=== PATIENT | male | born 1990 | race Caucasian/White ===

== ENCOUNTER 2019-02-24 07:03 | Emergency (ER) | payer BC, MEDICAID ==
--- NOTE | 2019-02-24 07:46 | Emergency Department Record ---
History of Present Illness - General Chief Complaint: Ankle/Foot Injury Stated Complaint: INJURED ANKLE Time Seen by Provider: 02/24/19 07:11 Source: Patient Mode of Arrival: Wheelchair Limitations: No limitations - History of Present Illness Initial Comments: pt twisted his l ankle yesterday then retwisted it again today. he also twisted his r knee MD Complaint: Knee injury, Ankle injury Onset/Timin -: Hour(s) Injury: Knee: Right, Ankle: Left Type of Injury: Inversion Place: Home Severity: Moderate Severity scale (1-10): 5 Improves With: Immobilization Worsens With: Weight bearing Context: Walking Associated Symptoms: Able to partially bear weight - Related Data Home Medications Medication Instructions Recorded Confirmed Last Taken No Home Med [NO HOME MEDS] 02/24/19 02/24/19 Unknown Allergies Allergy/AdvReac Type Severity Reaction Status Date / Time No Known Drug Allergies Allergy Verified 02/24/19 07:23 Travel Screening - Travel/Exposure Within Last 30 Days Have you traveled within the last 30 days?: No - Travel/Exposure Within Last Year Have you traveled outside the [place] in the last year?: No - Additonal Travel Details Have you been exposed to anyone with a communicable illness?: No - Travel Symptoms Symptom Screening: None Review of Systems Reviewed: No additional complaints except as noted below Constitutional: Reports: As per HPI. Denies: Chills, Fever, Malaise, Night sweats, Weakness, Weight change Eyes: Reports: As per HPI. Denies: Eye discharge, Eye pain, Photophobia, Vision change ENT: Reports: As per HPI. Denies: Congestion, Dental pain, Ear pain, Epistaxis, Hearing loss, Throat pain Respiratory: Reports: As per HPI. Denies: Cough, Dyspnea, Hemoptysis, Stridor, Wheezes Cardiovascular: Reports: As per HPI. Denies: Arrhythmia, Chest pain, Dyspnea on exertion, Edema, Murmurs, Orthopnea, Palpitations, Paroxysmal nocturnal dyspnea, Rheumatic Fever, Syncope Endocrine: Reports: As per HPI. Denies: Fatigue, Heat or cold intolerance, Polydipsia, Polyuria Gastrointestinal: Reports: As per HPI. Denies: Abdominal pain, Constipation, Diarrhea, Hematemesis, Hematochezia, Melena, Nausea, Vomiting Genitourinary: Reports: As per HPI. Denies: Dysuria, Frequency, Hematuria, Incontinence, Retention, Testicular pain, Testicular mass, Urgency Musculoskeletal: Reports: As per HPI. Denies: Arthralgia, Back pain, Gout, Joint swelling, Myalgia, Neck pain Skin: Reports: As per HPI. Denies: Bruising, Change in color, Change in hair/nails, Lesions, Pruritus, Rash Neurological: Reports: As per HPI. Denies: Abnormal gait, Confusion, Headache, Numbness, Paresthesias, Seizure, Tingling, Tremors, Vertigo, Weakness Psychiatric: Reports: As per HPI. Denies: Anxiety, Auditory hallucinations, Depression, Homicidal thoughts, Suicidal thoughts, Visual hallucinations Hematological/Lymphatic: Reports: As per HPI. Denies: Anemia, Blood Clots, Easy bleeding, Easy bruising, Swollen glands Past Medical History - SOCIAL HISTORY Smoking Status: Current every day smoker Alcohol Use: Occasional Drug Use: Occasional Drug Use Detail:: Marijuana - RESPIRATORY Hx Respiratory Disorders: No - CARDIOVASCULAR Hx Cardio Disorders: No - GI Hx GI Disorders: No - Hx Genitourinary Disorders: No - MUSCULOSKELETAL Hx Musculoskeletal Disorders: No - PSYCH Hx Psych Problems: No - HEMATOLOGY/ONCOLOGY Hx Hematology/Oncology Disorders: No Family Medical History Any Significant Family History?: No Physical Exam - General General Appearance: Alert, Oriented x3, Cooperative, Mild distress - Head Head exam: Normal inspection - Eye Eye exam: Normal appearance, PERRL, EOMI Pupils: Normal accommodation - ENT ENT exam: Normal exam, Mucous membranes moist, Normal external ear exam, Normal orophraynx Ear exam: Normal external inspection. negative: External canal tenderness Nasal Exam: Normal inspection. negative: Discharge, Sinus tenderness Mouth exam: Normal external inspection, Tongue normal Teeth exam: Normal inspection. negative: Dental caries Throat exam: Normal inspection. negative: Tonsillar erythema, Tonsillar exudate - Neck Neck exam: Normal inspection, Full ROM. negative: Tenderness - Respiratory Respiratory exam: Normal lung sounds bilaterally. negative: Respiratory distress - Cardiovascular Cardiovascular Exam: Regular rate, Normal rhythm, Normal heart sounds - GI/Abdominal GI/Abdominal exam: Soft, Normal bowel sounds. negative: Tenderness - Rectal Rectal exam: Deferred - exam: Deferred - Extremities Extremities exam: Normal inspection, Full ROM, Normal capillary refill, Tenderness Image of Full Body: 1 - tender w swelling 2 - tender w swelling - Back Back exam: Reports: Normal inspection, Full ROM. Denies: Muscle spasm, Rash noted, Tenderness - Neurological Neurological exam: Alert, CN II-XII intact, Normal gait, Oriented X3 - Psychiatric Psychiatric exam: Normal affect, Normal mood - Skin Skin exam: Dry, Intact, Normal color, Warm Course Vital Signs 02/24/19 07:24 Temperature 97.4 F L Pulse Rate 88 Respiratory 18 Rate Blood Pressure 159/100 Pulse Ox 99 Disposition Disposition: Discharge Clinical Impression: Ankle sprain Qualifiers: Encounter type: initial encounter Involved ligament of ankle: unspecified ligament Laterality: left Qualified Code(s): S93.402A - Sprain of unspecified ligament of left ankle, initial encounter Knee sprain Qualifiers: Encounter type: initial encounter Involved ligament of knee: unspecified ligament Laterality: right Qualified Code(s): S83.91XA - Sprain of unspecified site of right knee, initial encounter Condition: (1) Good Instructions: Ankle Sprain (ED), Ankle Sprain Exercises (GEN), Knee Sprain (ED) Additional Instructions: follow up with family doctor. return sooner if worse. ice and elevate. motrin for pain Forms: Patient Portal Access Quality - Quality Measures Quality Measures: N/A - Blood Pressure Screening Does Patient Have Any of the Following: No Blood Pressure Classification: Hypertensive Reading Systolic Measurement: 159 Diastolic Measurement: 100 Screening for High Blood Pressure: < First Hypertensive BP, F/U Documented > [G8950] First Hypertensive Follow-up Interventions: Follow-up with rescreen GT 1 day and LT 4 weeks.
[2019-02-24] MEDS ORDERED: IBUPROFEN 600 MG TABLET PO ONE (08:17)
--- NOTE | 2019-02-25 06:16 | RADIOLOGY REPORT ---
EXAM: ANKLE LEFT 3 VIEWS HISTORY: PAIN POST INJURY. TECHNIQUE: Three views of the left ankle. COMPARISON: None. ENCOUNTER: Initial. FINDINGS: There is normal bone mineralization. No acute fracture, dislocation, or destructive bone lesion is seen. The articular relations are maintained. There is a small plantar calcaneal spur. Anterolateral soft tissue swelling is present. IMPRESSION: 1. NO ACUTE FRACTURE NOR DISLOCATION. 2. ANTEROLATERAL SOFT TISSUE SWELLING. 3. SMALL PLANTAR CALCANEAL SPUR. JOB NUMBER: [id number] [facility]
--- NOTE | 2019-02-25 06:19 | RADIOLOGY REPORT ---
EXAM: KNEE, RIGHT 4 VIEWS HISTORY: KNEE PAIN POST TWISTING INJURY. TECHNIQUE: Four views of the right knee. COMPARISON: None. ENCOUNTER: Initial. FINDINGS: There is normal bone mineralization. No acute fracture, dislocation, or destructive bone lesion is seen. The articular relations are maintained. No joint effusion. No focal soft tissue abnormality. IMPRESSION: NO EVIDENCE OF ACUTE BONE NOR JOINT ABNORMALITY. JOB NUMBER: [id number] [facility]
== END 2019-02-24 08:57 | disposition home or self-care (01) ==
LOC: ER 07:03
DX: S93.402A Sprain of unspecified ligament of left ankle, initial encounter (principal); S83.91XA Sprain of unspecified site of right knee, initial encounter; W50.1XXA Accidental kick by another person, initial encounter; Y92.009 Unspecified place in unspecified non-institutional (private) residence as the place of occurrence of the external cause
CPT/HCPCS: 99284